=== PATIENT | female | born 1970 | race Caucasian/White ===

== ENCOUNTER 2021-03-05 13:06 | Outpatient (REF) | payer OTHER, SELFPAY | END 2021-03-05 13:07 | disposition home or self-care (01) | LOC: HO.LAB 13:06 | PROVIDERS: PCP Internal Medicine; Visit Provider Internal Medicine | DX: Z20.822 Contact with and (suspected) exposure to COVID-19 (principal) | CPT/HCPCS: C9803; U0003; U0005 ==

== ENCOUNTER 2021-05-16 15:33 | Outpatient (REF) | payer OTHER, SELFPAY ==
[2021-05-16 15:58] LABS: COVID-19 Test Negative (Negative)
== END 2021-05-16 15:34 | disposition home or self-care (01) ==
LOC: HO.LAB 15:33
PROVIDERS: Visit Provider Internal Medicine
DX: Z20.822 Contact with and (suspected) exposure to COVID-19 (principal)
CPT/HCPCS: 36415; 87635; C9803

== ENCOUNTER 2021-05-29 17:39 | Emergency (ER) | payer OTHER, SELFPAY ==
[2021-05-29 17:44] VITALS: BP 140/77; PULSE 85; RESP 18; TEMP 36.4; O2SAT 100; BMI 18.0
[2021-05-29 21:56] VITALS: BP 130/79; PULSE 66; RESP 16; TEMP 36.8; O2SAT 100
[2021-05-29 22:25] LABS: COVID-19 Test Negative (Negative)
--- NOTE | 2021-05-29 22:32 | ED.GENADULT ---
HPI - General Adult General Chief complaint: Upper Respiratory Symptoms Stated complaint: Earache Time Seen by Provider: 05/29/21 22:32 Source: patient Mode of arrival: ambulatory Limitations: no limitations History of Present Illness HPI narrative: 51-year-old female came in for evaluation of upper respiratory symptoms, sneezing, and bilateral ear pain, patient declined any fever chills, patient is up-to-date on her COVID vaccination, no exposure to sick contact, no recent travel. Related Data Previous Rx's Medication Instructions Recorded azithromycin 250 mg tablet See Rx Instructions .ROUTE 05/29/21 (Zithromax Z-Claus) .COMPLEX #6 tab Allergies Allergy/AdvReac Type Severity Reaction Status Date / Time Penicillins [PENICILLINS] Allergy Unknown RASH Unverified 02/29/20 16:01 Review of Systems Review of Systems: All other systems are reviewed and are negative Constitutional: Reports as per HPI and Reports no additional constitutional complaints Eyes: Reports as per HPI and Reports no additional eye complaints Reports system reviewed and no additional complaints, except as documented Cardiovascular: Reports as per HPI and Reports no additional cardiovascular complaints Respiratory: Reports as per HPI and Reports no additional respiratory complaints Gastrointestinal: Reports as per HPI and Reports no additional gastrointestinal complaints Genitourinary: Reports no additional female genitourinary complaints Musculoskeletal: Reports no additional musculoskeletal complaints Skin/Breast: Reports system reviewed and no additional complaints, except as docu Psychiatric: Reports no additional psychiatric complaints Endocrine: Reports no additional endocrine complaints Hematologic/Lymphatic: Reports no additional hematologic/lymphatic complaints Allergic/Immunologic: Reports no additional allergic/immunologic complaints Reports system reviewed and no additional complaints, except as documented and Reports Abnormal speech present [facility] Social History Social History Advance Directives: No Advance Directives Information Provided: No Physical Exam Vital Signs: Vital Signs: Last Vital Signs Temp 98.3 F 05/29/21 21:56 Pulse 66 05/29/21 21:56 Resp 16 05/29/21 21:56 BP 130/79 05/29/21 21:56 Pulse Ox 100 05/29/21 21:56 BMI result Body Mass Index 18.0 vital signs have been reviewed as appeared to be correct. Blood pressure normal. Heart rate normal. Respiration rate normal. Temperature normal. Oxygen saturation normal. Appearance: Alert. Oriented X3. No acute distress. Head: Normal external exam. Normocephalic. Atraumatic. No Black signs noted. No raccoon eyes noted Eyes: PERRLA. EOMI. Conjunctiva and sclera normal. Eyelids normal. ENT: Bilateral TM erythema left more than right.. Pharynx normal. Uvula midline. Moist mucous membranes. No trismus noted. No drooling noted. No muffled voice noted. Neck: Normal inspection. Neck supple. FROM. No adenopathy. Thyroid Normal. No meningeal signs. No neck mass noted. CVS: Normal heart rate and rhythm. Heart sound normal. No murmurs noted. Pulses normal throughout. Respiratory: No respiratory distress. Painless inspiration. Breath sounds normal. No wheezes/rales/rhonchi noted. Chest nontender. No accessory muscle usage noted or decreased air movement noted. Abdomen: Soft and nontender. Bowel sounds normal in all 4 quadrants. No distention noted. No organomegaly noted. No visible injury noted. Back: No CVA tenderness. Full range of motion noted. Skin: Skin warm and dry. Normal skin color. Normal skin turgor. No rashes/lesions/lacerations noted. Extremities: No lower extremity edema. Extremities exhibit normal range of motion. Extremities nontender. Neuro: Oriented X 3. Cranial nerve exam: II-XII are grossly intact No motor deficit. No sensory deficit. Reflexes normal. Course Course Course Narrative: 51-year-old female came in with upper respiratory symptoms and ear pain left more than right, physical exam is consistent with otitis media. Patient is allergic to penicillins will start the patient on Z-Claus. Medical Decision Making Lab Data Lab results reviewed: Yes I reviewed the patient's lab results. Labs: Lab Results 05/29/21 Range/Units 21:51 COVID-19 (LYNETTE) Negative (Negative) COVID-19 Clin Com See Note Discharge Plan Discharge Clinical Impression: Upper respiratory infection, Otitis media Patient Disposition: Home, Self-Care Instructions: Ear Infection (ED) Prescriptions: New azithromycin [Zithromax Z-Claus] 250 mg tablet See Rx Instructions .ROUTE .COMPLEX Qty: 6 RF: 0 Referrals: Janna Helms MD [Primary Care Provider] - 2 days
[2021-05-29] MEDS: Azithromycin 500 MG TABLET PO (23:02)
== END 2021-05-29 23:08 | disposition home or self-care (01) ==
PROVIDERS: Emergency Provider Emergency Medicine; PCP Internal Medicine
DX: J06.9 Acute upper respiratory infection, unspecified (principal); H66.93 Otitis media, unspecified, bilateral; Z20.822 Contact with and (suspected) exposure to COVID-19
CPT/HCPCS: 36415; 87635; 99283; 99284

== ENCOUNTER 2021-06-04 10:53 | Outpatient (REF) | payer OTHER, SELFPAY ==
[2021-06-04 11:58] LABS: COVID-19 Test Negative (Negative)
== END 2021-06-04 10:54 | disposition home or self-care (01) ==
LOC: HO.LAB 10:53
PROVIDERS: Visit Provider Internal Medicine
DX: Z20.822 Contact with and (suspected) exposure to COVID-19 (principal)
CPT/HCPCS: 36415; 87635; C9803

== ENCOUNTER 2021-08-08 15:57 | Emergency (ER) | payer OTHER, SELFPAY ==
[2021-08-08 16:15] VITALS: BP 123/73; PULSE 93; RESP 18; TEMP 36.8; O2SAT 98; BMI 19.2
--- NOTE | 2021-08-08 16:44 | ED.GENADULT ---
HPI - General Adult General Chief complaint: General Medical Stated complaint: Neck pain Time Seen by Provider: 08/08/21 16:35 Source: patient Mode of arrival: ambulatory Limitations: no limitations History of Present Illness HPI narrative: 51 y/o female presents to the ER with acute onset of nontraumatic posterior & lateral neck pain that started when she woke up yesterday. She reports the pain is located on both sides of the neck and the base of the skull. Worse with movement and palpation. She has a hard time looking from side to side due to the pain. She denies any photophobia, noise sensitivity, headache. No fevers or chills. She reports increase in stress and has a lot of responsibilities with her family and at work. complaint: Neck pain Onset (ago): hour(s) (2) Location: neck Radiation: back Severity: severe Severity scale (1-10): 9 Quality: sharp Pain Consistency: constant Relieving factors: immobilization Exacerbating factors: movement Associated symptoms: denies other symptoms Treatments prior to arrival: NSAID Related Data Previous Rx's Medication Instructions Recorded azithromycin 250 mg tablet See Rx Instructions .ROUTE 05/29/21 (Zithromax Z-Claus) .COMPLEX #6 tab cyclobenzaprine 5 mg tablet 5 mg PO TID PRN #14 tab 08/08/21 ibuprofen 600 mg tablet 600 mg PO Q8H PRN #20 tab 08/08/21 lidocaine 5 % topical patch 1 patch TOPICAL DAILY #15 ea 08/08/21 Allergies Allergy/AdvReac Type Severity Reaction Status Date / Time Penicillins [PENICILLINS] Allergy Unknown RASH Verified 05/29/21 23:02 doxycycline AdvReac Abdominal Verified 05/29/21 23:02 Pain Review of Systems Review of Systems: Constitutional: No Fever, No Chills Cardiovascular: No Chest Pain, No SOB Gastrointestinal: No Nausea, No Vomiting Musculoskeletal: + joint pain, + Myalgias Skin: No Skin Lesions, No rash Neuro: No Weakness, No Numbness Psych: + Anxiety/Panic, No Depression Heme/Lymph: No Bruising PMFSH Social History Social History Advance Directives: No Advance Directives Information Provided: No Physical Exam ED Vital Signs: Vital Signs - 24 hr 08/08/21 16:15 Temperature 98.2 F Pulse Rate 93 Respiratory Rate 18 Blood Pressure 123/73 Pulse Oximetry 98 BMI result Body Mass Index 19.2 Appearance: Alert. Oriented X3. No acute distress. Eyes: Pupils equal, round and reactive to light. ENT: Pharynx normal. Neck: Normal inspection. Bilateral soft tissue tenderness and palpable spasm laterally and at the insertion site of the trapezius a tthe occiput, no midline tenderness. pain with rotation to the right, limited ROM due to pain and spasm. no nuchal rigidity CVS: Normal heart rate and rhythm. Pulses normal. Respiratory: No respiratory distress. Breath sounds normal. Skin: Skin warm and dry. Normal skin color. Normal skin turgor. No rashes. Extremities: No lower extremity edema. Neuro: Oriented X 3. No motor deficit. No sensory deficit. Strength equal and symmetrical throughout. Nonfocal. steady gait. Course Course Course Narrative: 51-year-old female presenting with 2 days of nontraumatic posterior and lateral neck pain. On examination she has palpable soft tissue tenderness and spasm of the bilateral neck. Limited range of motion due to soft tissue tenderness and spasm. Clinical presentation is most consistent with muscle strain, spasm and possible torticollis. Will treat with muscle relaxers, NSAIDs and topical Lidoderm. Patient is very sensitive to medications, will give low-dose cyclobenzaprine. Review gentle massage and range of motion exercises well. She is stable for discharge home with supportive care, encouraged follow-up with her primary care doctor next week. Stable for DC home. Critical Care Time Critical Care Time Critical Care Time: No Discharge Plan Discharge Clinical Impression: Torticollis Patient Disposition: Home, Self-Care Instructions: Spasmodic Torticollis (ED) Additional Instructions: Take the prescribed medication as directed. Work on gentle range of motion exercises and gentle massage. No strenuous activity, limit your lifting. Recommend using ice and or heat for 20 minutes at a time, once an hour. Follow-up with your primary care doctor next week. If you develop new or worsening symptoms call 911 or come back to the ER for further evaluation. Prescriptions: New lidocaine 5 % adhesive patch,medicated 1 patch topical DAILY Qty: 15 0RF Rx Instructions: leave on most painful area for up to 12 hrs cyclobenzaprine 5 mg tablet 5 mg PO TID PRN (Reason: muscle spasm) Qty: 14 0RF ibuprofen 600 mg tablet 600 mg PO Q8H PRN (Reason: pain) Qty: 20 0RF No Action azithromycin [Zithromax Z-Claus] 250 mg tablet See Rx Instructions .ROUTE .COMPLEX Qty: 6 0RF Rx Instructions: For 250 mg dose pack: take 500 mg today (day 1), then 250 mg for 4 days (days 2-5) Stand Alone Forms: Work/School Release
[2021-08-08] MEDS: Ketorolac Tromethamine 30 MG/ML VIAL IM (17:54)
[2021-08-08] MEDS: Lidocaine 4 % Patch ADH..PATCH 1 PATCH TRANSDERMA (17:55)
== END 2021-08-08 18:34 | disposition home or self-care (01) ==
PROVIDERS: Emergency Provider Emergency Medicine; PCP Internal Medicine
DX: M43.6 Torticollis (principal); M54.2 Cervicalgia; Z79.899 Other long term (current) drug therapy
CPT/HCPCS: 96372; 99283; 99284; J1885

== ENCOUNTER 2022-03-06 18:14 | Emergency (ER) | payer OTHER, SELFPAY ==
[2022-03-06 18:17] VITALS: BP 143/60; PULSE 70; RESP 18; TEMP 36.6; O2SAT 100; BMI 18.6
[2022-03-06 18:55] LABS: COVID-19 Test Negative (Negative); IDNOW Serial# 9DB6401D
[2022-03-06 18:59] LABS: IDNOW Serial# 08D9AD1C; Influenza A Negative (Negative); Influenza B2 Negative (Negative)
[2022-03-06 19:00] LABS: Strep A Nucleic Acid Negative (Negative)
--- NOTE | 2022-03-06 22:07 | ED_ITS ---
HPI - URI/Sore Throat General Chief Complaint: Upper Respiratory Symptoms Stated Complaint: cough, earaches Time Seen by Provider: 03/06/22 21:49 Source: patient Mode of arrival: ambulatory Limitations: no limitations History of Present Illness HPI Narrative: 52-year-old female history of asthma, allergies, recurrent sinus infections presenting to the emergency complaints sore throat, dry cough, bilateral ear dis comfort, malaise, fatigue times a week worsening. Patient reports she recently traveled to [place] and was around a lot of people. Patient tells me that her sore throat is what is bothering her most she tells me she has tested negative for COVID multiple times including Wednesday and Wednesday. Patient tells me she used to take loratadine for allergies however has not been taking it recently. Patient denies fevers, chills, chest pain, shortness of breath, nausea, vomiting, abdominal pain, headache, dizziness and vision changes. Related Data Previous Rx's Medication Instructions Recorded azithromycin 250 mg tablet See Rx Instructions PO .COMPLEX #6 05/29/21 (Zithromax Z-Claus) tabs cyclobenzaprine 5 mg tablet 5 mg PO TID PRN muscle spasm #14 08/08/21 tabs ibuprofen 600 mg tablet 600 mg PO Q8H PRN pain #20 tabs 08/08/21 lidocaine 5 % topical patch 1 patch topical DAILY #15 ea 08/08/21 azithromycin 250 mg tablet See Rx Instructions PO .COMPLEX #6 03/06/22 tabs loratadine 10 mg tablet 10 mg PO DAILY #20 tabs 03/06/22 prednisone 20 mg tablet 40 mg PO DAILY 5 days #10 tabs 03/06/22 Allergies Allergy/AdvReac Type Severity Reaction Status Date / Time Penicillins [PENICILLINS] Allergy Unknown RASH Verified 05/29/21 23:02 doxycycline AdvReac Abdominal Verified 05/29/21 23:02 Pain Review of Systems Review of Systems: Constitutional : No Weight loss, No Fever, No Chills, No Fatigue, No Malaise ENT/Mouth : + sore throat, + Rhinorrhea, + congestion, + ear pain Eyes: No Eye Pain, No Swelling, No Redness Cardiovascular : No Chest Pain, No SOB, No Dyspnea on Exertion, No Orthopnea, No Edema, No Palpitations Respiratory : + Cough, No Sputum, No Wheezing Gastrointestinal : No Nausea, No Vomiting, No Diarrhea, No Constipation, No abdominal Pain, No Hematochezia, No Melena Genitourinary : No Dysuria, No Urinary Frequency, No Hematuria, Musculoskeletal : No joint pain, No Myalgias, No Joint Swelling Skin : No Skin Lesions, No rash Neuro : No Weakness, No Numbness, No Dizziness, No Headache Psych : No Anxiety/Panic, No Depression All other systems reviewed and are negative Yes all other systems are reviewed and are negative [facility] Past Medical History Attestation statement: The following information was validated with the patient. Source: old records reviewed and nursing notes reviewed Social History Social History Advance Directives: No Advance Directives Information Provided: No Physical Exam Vital Signs: Vital Signs: Last Vital Signs Temp 97.9 F 03/06/22 18:17 Pulse 70 03/06/22 18:17 Resp 18 03/06/22 18:17 BP 143/60 H 03/06/22 18:17 Pulse Ox 100 03/06/22 18:17 O2 Del Method 03/06/22 18:17 BMI result Body Mass Index 18.6 vss Appearance: Alert.? Oriented X3.? No acute distress.? Patient speaking in full sentences, controlling secretions well. Nontoxic-appearing, appears comfortable. Head: Normocephalic, atraumatic, no step-offs or deformities Eyes: Pupils equal, round and reactive to light.? ENT: Pharynx normal.? Uvula midline, no signs of peritonsillar abscess, posterior pharynx without exudates. No edema to the posterior pharynx, tongue, lips. Bilateral tympanic membranes pearly white, ear canal within normal l imits, no edema. No evidence of effusions. No mastoid tenderness. Neck: Normal inspection.? Neck supple.? No crepitus. CVS: Normal heart rate and rhythm.? Pulses normal.? Respiratory: No respiratory distress.? Breath sounds normal.? Abdomen: Soft and nontender.? Skin: Skin warm and dry.? Normal skin color.? Normal skin turgor.? Extremities: No lower extremity edema.? No calf ttp. 5/5 strength to bilateral upper and lower extremities Neuro: Oriented X 3.? No motor deficit.? No sensory deficit. CN 2-12 intact Course Reevaluation(s) Reevaluation #1: Flu, COVID, strep negative. At this time patient will be discharged home likely diagnosis upper viral respiratory infection will send her home Z-Claus, loratadine and prednisone. Advised to return with new or worsening symptoms. Time: 22:10 MDM - URI/Sore Throat MDM Narrative Medical decision making narrative: 2139 52-year-old female presents with upper respiratory symptoms times a week. Physical examination benign. Likely upper viral respiratory infection versus allergies. Unlikely sinusitis, pneumonia, PE. No signs of epiglottitis, peritonsillar abscess, malignant otitis, mastoiditis Plan at this time is to obtain flu, COVID, and strep test. Medical Records Attestation: I reviewed the patient's medical records. Lab Data Attestation: I reviewed the patient's lab results. Labs: Lab Results 03/06/22 03/06/22 03/06/22 Range/Units 18:21 18:21 18:21 COVID-19 (LYNETTE) Negative (Negative) COVID-19 Clin Com See Note Influenza Type A (LAUREN) Negative (Negative) Influenza Type B (LAUREN) Negative (Negative) Influenza A & B Note See Note S. pyogenes GrpA LAUREN Negative (Negative) Critical Care Time Critical Care Time Critical Care Time: No Discharge Plan Discharge Clinical Impression: Upper respiratory infection Patient Disposition: Home, Self-Care Instructions: Upper Respiratory Infection (ED) Additional Instructions: Take your medications as prescribed. If you were prescribed antibiotics today, it is important that you take your medication to their entirety, do not skip any doses, do not finish them early. Follow-up with your primary care provider this week. Return to the emergency department with new or worsening symptoms. Such as fevers, chills, chest pain, shortness of breath, nausea, vomiting, dizziness, headache, vision changes, lethargy In case of emergency call 911 Prescriptions: New azithromycin 250 mg tablet See Rx Instructions .ROUTE .COMPLEX Qty: 6 0RF Rx Instructions: For 250 mg dose pack: take 500 mg today (day 1), then 250 mg for 4 days (days 2-5) prednisone 20 mg tablet 40 mg PO DAILY 5 Days Qty: 10 0RF loratadine 10 mg tablet 10 mg PO DAILY Qty: 20 0RF No Action azithromycin [Zithromax Z-Claus] 250 mg tablet See Rx Instructions .ROUTE .COMPLEX Qty: 6 0RF Rx Instructions: For 250 mg dose pack: take 500 mg today (day 1), then 250 mg for 4 days (days 2-5) lidocaine 5 % adhesive patch,medicated 1 patch topical DAILY Qty: 15 0RF Rx Instructions: leave on most painful area for up to 12 hrs cyclobenzaprine 5 mg tablet 5 mg PO TID PRN (Reason: muscle spasm) Qty: 14 0RF ibuprofen 600 mg tablet 600 mg PO Q8H PRN (Reason: pain) Qty: 20 0RF Referrals: Janna Helms MD [Primary Care Provider] - 2 days Stand Alone Forms: Work/School Release
== END 2022-03-06 22:42 | disposition home or self-care (01) ==
PROVIDERS: Emergency Provider Emergency Medicine; PCP Internal Medicine
DX: J06.9 Acute upper respiratory infection, unspecified (principal); Z20.822 Contact with and (suspected) exposure to COVID-19; J02.9 Acute pharyngitis, unspecified
CPT/HCPCS: 36415; 87502; 87635; 87651; 99282; 99283

== ENCOUNTER 2023-05-06 15:48 | Emergency (ER) | payer OTHER, SELFPAY ==
[2023-05-06 15:50] VITALS: BP 176/47; PULSE 78; RESP 18; TEMP 36.1; O2SAT 95; BMI 19.9
--- NOTE | 2023-05-06 15:51 | ED.GENADULT ---
HPI - General Adult General Chief complaint: Upper Respiratory Symptoms Stated complaint: ?COVID Time Seen by Provider: 05/06/23 15:52 Source: patient Mode of arrival: ambulatory Limitations: no limitations History of Present Illness HPI narrative: Patient is a 53-year-old female presenting to the emergency department stating that she has been around her mother who just tested positive for Covid and is specifically requesting Covid testing. Complains of scratchy throat and mild shortness of breath. Denies cough, fever, chest pain. MD complaint: throat irritation Onset (ago): hour(s) Severity: mild Associated symptoms: shortness of breath Treatments prior to arrival: none Related Data Previous Rx's Medication Instructions Recorded azithromycin 250 mg tablet See Rx Instructions PO .COMPLEX #6 05/29/21 (Zithromax Z-Claus) tabs cyclobenzaprine 5 mg tablet 5 mg PO TID PRN muscle spasm #14 08/08/21 tabs ibuprofen 600 mg tablet 600 mg PO Q8H PRN pain #20 tabs 08/08/21 lidocaine 5 % topical patch 1 patch topical DAILY #15 ea 08/08/21 azithromycin 250 mg tablet See Rx Instructions PO .COMPLEX #6 03/06/22 tabs loratadine 10 mg tablet 10 mg PO DAILY #20 tabs 03/06/22 prednisone 20 mg tablet 40 mg (2 x 20 mg) PO DAILY 5 days 03/06/22 #10 tabs Allergies Allergy/AdvReac Type Severity Reaction Status Date / Time Penicillins [PENICILLINS] Allergy Unknown RASH Verified 05/06/23 15:54 doxycycline AdvReac Abdominal Verified 05/06/23 15:54 Pain Review of Systems Review of Systems: As per HPI. Yes all other systems are reviewed and are negative Constitutional: Constitutional: Reports as per HPI [facility] Social History Advance Directives: No Advance Directives Information Provided: No Physical Exam ED Vital Signs: Vital Signs - 24 hr 05/06/23 15:50 Temperature 97.0 F Pulse Rate 78 Respiratory Rate 18 Blood Pressure 176/47 H Pulse Oximetry 95 Oxygen Delivery Method Room Air BMI result Body Mass Index 19.9 Vital signs have been reviewed and appear to be correct. Blood pressure normal. Heart rate normal. Respiratory rate normal. Temperature normal. Oxygen saturation normal. Const General: cooperative, healthy appearing and no acute distress Orientation/consciousness: oriented to person, oriented to place, oriented to time and patient oriented x3 Limitations: no limitations HENMT Head: Yes normocephalic and Yes atraumatic Ears: external ears normal General nose exam: Normal external nose present Face and sinus: Yes face symmetric Mouth: oropharynx normal and moist mucous membranes Throat: Yes uvula midline Eyes Pupils: Equal, round and reactive pupils present Neck Neck: Yes normal visual inspection and Yes supple Resp Effort & Inspection: normal respiratory effort and able to speak in complete sentences Auscultation: clear to auscultation bilaterally Cardio Rate: regular rate Rhythm: regular rhythm Heart sounds: S1 normal heart sound present and S2 normal heart sound present GI Palpation (GI): Soft to palpation and nontender Auscultation: normoactive bowel sounds General: Yes no CVA tenderness Back/Spine/Pelvis Back: no CVA tenderness Skin General skin exam: elasticity normal and turgor normal Neuro General: oriented to person, oriented to place, oriented to time, patient oriented x3, moves all extremities, no focal motor deficits and CN's II-XI intact bilaterally Cranial nerves: Yes Equal, round and reactive pupils present Cognition (Neuro): normal cognition Extrem General: Yes full ROM, Yes no pedal edema and Yes no calf tenderness Psych Mental Status: mental status grossly normal Affect: normal affect Thought process: Normal thought process present Medical Decision Making Medical Decision Making [facility] Narrative: Patient is a 53-year-old female presenting to the emergency department stating that she has been around her mother who just tested positive for Covid and is specifically requesting Covid testing. On exam patient is awake, A+Ox3, VS WNL, afebrile, normal neurological exam without focal deficits, physical exam findings as above. Given reported symptoms and physical exam findings, initial differential includes viral illness, Covid, flu, strep pharyngitis. Swabs for Covid, flu, and strep all negative. Patient updated on results and all questions answered. Discussed proper PPE with patient as she will continue to be caring for her mother who was COVID positive. Instructed patient to follow-up with PCP or return to the emergency department for any new or worsening symptoms. Patient verbalized understanding of and agreement with plan. Differential Diagnosis Differential Diagnoses: The differential diagnosis associated with the presentation includes As per MDM. Lab Data [facility] Lab Attestation statement: I reviewed the patient's lab results. As per MDM. Labs: Lab Results 05/06/23 Range/Units 15:56 COVID-19 (LYNETTE) Negative (Negative) COVID-19 Clin Com See Note Influenza Type A (LAUREN) Negative (Negative) Influenza Type B (LAUREN) Negative (Negative) Influenza A & B Note See Note S. pyogenes GrpA LAUREN Negative (Negative) External Record Review External record reviewed: Inpatient record, Office record and Outpatient record Discharge Plan Discharge Clinical Impression: Viral infection Patient Disposition: Home, Self-Care Instructions: Viral Syndrome (ED) Additional Instructions: You were evaluated in the emergency department today for sore throat. Your Covid, flu, and strep tests were all negative. Your symptoms are likely related to a viral illness which will resolve on its own with time and rest. You should ensure adequate fluid intake, and can use Tylenol 650 mg or ibuprofen 600 mg every 6 hours as needed for fever or discomfort. Please follow-up with your primary care provider this week. Return to the emergency department if you develop chest pain, worsening shortness of breath, difficulty swallowing, fever 100.4? F or greater or any other concerning symptoms. Prescriptions: No Action azithromycin [Zithromax Z-Claus] 250 mg tablet See Rx Instructions .ROUTE .COMPLEX Qty: 6 0RF Rx Instructions: For 250 mg dose pack: take 500 mg today (day 1), then 250 mg for 4 days (days 2-5) lidocaine 5 % adhesive patch,medicated 1 patch topical DAILY Qty: 15 0RF Rx Instructions: leave on most painful area for up to 12 hrs cyclobenzaprine 5 mg tablet 5 mg PO TID PRN (Reason: muscle spasm) Qty: 14 0RF ibuprofen 600 mg tablet 600 mg PO Q8H PRN (Reason: pain) Qty: 20 0RF azithromycin 250 mg tablet See Rx Instructions .ROUTE .COMPLEX Qty: 6 0RF Rx Instructions: For 250 mg dose pack: take 500 mg today (day 1), then 250 mg for 4 days (days 2-5) prednisone 20 mg tablet 40 mg PO DAILY 5 Days Qty: 10 0RF loratadine 10 mg tablet 10 mg PO DAILY Qty: 20 0RF
[2023-05-06 16:19] LABS: IDNOW Serial# 58CA691E; Strep A Nucleic Acid Negative (Negative)
[2023-05-06 16:25] LABS: COVID-19 Test Negative (Negative); IDNOW Serial# 9DB6401D
[2023-05-06 16:26] LABS: IDNOW Serial# BCCEAD1C; Influenza A Negative (Negative); Influenza B2 Negative (Negative)
[2023-05-06 16:55] VITALS: BP 123/57; PULSE 74; RESP 16; TEMP 36.6; O2SAT 98
--- NOTE | 2023-05-06 17:02 | PC.NURSE ---
Pt d/c from triage nurse, all swabs are negative, pt given education on follow up testing if she feels her symptoms do not improve. Pt currently in ED room with her mother.
== END 2023-05-06 17:02 | disposition home or self-care (01) ==
PROVIDERS: Registered Nurse Emergency; Emergency Provider Emergency Medicine; PCP Internal Medicine
DX: B34.9 Viral infection, unspecified (principal); J02.9 Acute pharyngitis, unspecified; R06.02 Shortness of breath; Z11.52 Encounter for screening for COVID-19
CPT/HCPCS: 87502; 87635; 87651; 99283

== ENCOUNTER 2023-10-07 15:51 | Outpatient (AMB) | payer OTHER, SELFPAY ==
--- NOTE | 2023-10-07 16:08 | MHC.OFFWIV ---
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 Patient Tobacco Use Status: Current someday Tobacco user Allergies Penicillins [PENICILLINS] Allergy (Unknown, Verified 10/07/23 16:11) RASH doxycycline Adverse Reaction (Verified 10/07/23 16:11) Abdominal Pain Do you need a note to return to daycare/school/sports/work: No HPI HPI Comments History of Present Illness Details The patient presents to urgent care for evaluation of a rash on her back. She states that for the past 2 nights she has been having hot flashes and has sweat tremendously at night. This morning she woke with burning and itching to her back. The area was red. She notes that a couple of days ago she washed her laundry with her usual detergent and fabric softener however she felt like the laundry might not have rinsed off the fabric softener properly as she felt like her clothes were too soft and she felt like her skin was slimy after wearing them. Patient has not come in contact with anything she is known to be allergic to. [facility] Social History Patient Tobacco Use Status: Current someday Tobacco user Review of Systems Eyes Reports no additional complaints ENT Reports Normal hearing present and Denies dysphagia Card Denies dyspnea and Denies slow heart rate Resp Denies cough and Denies dyspnea GI Denies dysphagia and Denies heartburn Denies dysuria Musc Denies tingling Skin/Breast Reports lesions, Denies skin ulcer and Denies unusual bruising Neuro Reports Normal hearing present, Denies Sensory deficit (Neuro), Denies tingling and Denies paresthesias Physical Exam Vital Signs: Last Vital Signs Temp 97 F 10/07/23 16:10 Pulse 82 10/07/23 16:10 BP 108/72 10/07/23 16:10 Pulse Ox 99 10/07/23 16:10 Oxygen Delivery Method Room Air 10/07/23 16:10 BMI result Body Mass Index 20.3 Const General: healthy appearing and no acute distress Resp Effort & Inspection: normal respiratory effort and able to speak in complete sentences Skin Other: Back: Several large areas of erythema with some slight swelling to the skin under these areas. No urticaria. No vesicles. Nontender no drainage Neuro Cranial nerves: Yes Normal hearing present Sensory Exam: No Sensory deficit (Neuro) Assessment & Plan Assessment & Plan (1) Contact dermatitis: Code(s): L25.9 - Unspecified contact dermatitis, unspecified cause Plan The region of erythema on the patient's back is where she has localized sensitivity. Etiology unclear though suspect contact dermatitis. Will treat with topical steroid cream. Medications: New triamcinolone acetonide 0.1% 1 appl topical BID 15 grams 0RF Discontinued lidocaine 5% leave on most painful area for up to 12 hrs Discontinued Reason: Patient no longer taking 1 patch topical DAILY 15 ea 0RF azithromycin (Zithromax Z-Claus) Discontinued Reason: Patient Completed Course For 250 mg dose pack: take 500 mg today (day 1), then 250 mg for 4 days (days 2-5) 6 tabs 0RF cyclobenzaprine Discontinued Reason: Patient no longer taking 5 mg PO TID PRN 14 tabs 0RF muscle spasm azithromycin Discontinued Reason: Order For 250 mg dose pack: take 500 mg today (day 1), then 250 mg for 4 days (days 2-5) 6 tabs 0RF prednisone Discontinued Reason: Patient Completed Course 40 mg (2 x 20 mg) PO DAILY 5 days 10 tabs 0RF Coding Level of Care Code Est Pt Level 3 (89580) Diagnoses Contact dermatitis L25.9
[2023-10-07 16:10] VITALS: BP 108/72; PULSE 82; TEMP 36.1; O2SAT 99; BMI 20.3
== END 2023-10-07 16:36 | disposition home or self-care (01) ==
PROVIDERS: PCP Internal Medicine; Visit Provider Emergency Medicine
DX: L25.9 Unspecified contact dermatitis, unspecified cause (principal)
CPT/HCPCS: 99213